=== PATIENT | male | born 1940 | race Caucasian/White ===

== ENCOUNTER 2017-03-05 09:10 | Emergency (ER) | payer MEDICARE ==
[2017-03-05] MEDS ORDERED: Acetaminophen 325 MG TAB ONE (09:34)
[2017-03-05] MEDS ORDERED: Ondansetron HCl/PF 4 MG/2 ML Vial ONE (09:45)
[2017-03-05 09:58] LABS: #Basophils 0.1 thou/uL (0.0-0.2); #Eosinphils 0.1 thou/uL (0.0-0.7); #Lymphocytes 1.9 thou/uL (1.20-3.40); #Monocytes 0.8 thou/uL (0.11-0.59); #Neutrophils 7.8 thou/uL (1.40-6.50); %Basophils 0.6 % (0.0-1.0); %Eosinophils 0.9 % (0.0-10.0); %Lymphocytes 17.7 % (21.0-51.0); %Monocytes 7.4 % (0.0-10.0); %Neutrophils 73.5 % (42.0-75.0); Hemoglobin 15.5 g/dL (14.0-18.0); Mean Corpuscular HGB CONC 31.4 g/dL (32.0-36.0); Mean Corpuscular Hemoglobin 28.9 pg (27.0-31.0); Mean Corpuscular Volume 92.2 fl (80.0-94.0); Mean Platelet Volume 8.2 fL (7.4-10.4); Platelet Count 145 thou/uL (130-400); RBC Distribution Width 12.2 % (11.5-14.5); Red Blood Cell (RBC) Count 5.36 mill/uL (4.70-6.10); White Blood Cell (WBC) Count 10.6 thou/uL (4.8-10.8)
[2017-03-05 10:12] LABS: ALT (SGPT) 13 U/L (8-55); AST (SGOT) 13 U/L (5-34); Albumin 3.7 g/dL (3.4-4.8); Alkaline Phosphatase 52 U/L (40-150); Anion Gap 15 mmol/L (10-20); BUN (Urea Nitrogen) 26 mg/dL (8.4-25.7); Bilirubin, Total 1.3 mg/dL (0.2-1.2); CK (CPK) 19 U/L (30-200); Calc. Creatinine Clearance 0 mL/min (70-130); Calcium 9.4 mg/dL (7.8-10.44); Carbon Dioxide 23 mmol/L (23-31); Chloride 104 mmol/L (98-107); Estimated GFR-MDRD 57; Globulin 2.6 g/dL (2.4-3.5); Glucose 135 mg/dL (83-110); Potassium 4.3 mmol/L (3.5-5.1); Protein, Total 6.3 g/dL (5.8-8.1); Sodium 138 mmol/L (136-145)
[2017-03-05 10:13] LABS: CKMB 0.5 ng/mL (0-6.6); Troponin I Less than 0.010 ng/mL (< 0.028)
--- NOTE | 2017-03-05 10:18 | RAD ---
CHEST TWO VIEWS: History: Cough, fever. Comparison: 03-15-12 FINDINGS: Cardiac silhouette is enlarged. Pulmonary vasculature is engorged. Mediastinum is midline. There is n o confluent airspace consolidation, pneumothorax, or pleural fluid evident. IMPRESSION: Cardiomegaly with mild pulmonary vascular congestion. POS: [facility]
[2017-03-05 11:33] LABS: Bilirubin Small (Negative); Blood, Urine Negative (Negative); Clarity Clear (Clear); Glucose, Urine (Dipstick) Negative (Negative); Leukocyte Negative (Negative); Nitrite Negative (Negative); Protein, Urine (Dipstick) 30 mg/dL (Neg-Trace); Specific Gravity, Urine 1.025 (1.005-1.030); pH, Urine 5.5 (5.0-9.0)
[2017-03-05 11:48] LABS: Bacteria/HPF None Seen HPF (None Seen); Crystals/HPF 1+ CA OXALATE HPF (Negative); RBC/HPF 0-3 HPF (0-3); Squamous Epithelial None Seen HPF (0-3); WBC/HPF 0-3 HPF (0-3)
[2017-03-05 12:18] LABS: Lactic Acid 0.8 mmol/L (0.5-2.2)
--- NOTE | 2017-03-28 15:48 | EKG ---
Test Reason : Blood Pressure : / mmHG Vent. Rate : 068 BPM Atrial Rate : 068 BPM P-R Int : 224 ms QRS Dur : 088 ms QT Int : 394 ms P-R-T Axes : 033 -57 -04 degrees QTc Int : 418 ms Sinus rhythm with 1st degree A-V block Left axis deviation Inferior infarct , age undetermined Abnormal ECG Confirmed by PATRICK VALERIO D.O. ([id number]), video effects editor KAVITA ROSALES ([id number]) on 03/28/2017 3:48:01 PM Referred By: IMAN Confirmed By:PATRICK VALERIO D.O.
== END 2017-03-05 12:36 | disposition home or self-care (01) ==
LOC: SCSER 09:10
DX: B34.9 Viral infection, unspecified (principal); E11.9 Type 2 diabetes mellitus without complications; E78.5 Hyperlipidemia, unspecified; Z85.038 Personal history of other malignant neoplasm of large intestine; Z79.82 Long term (current) use of aspirin; Z79.84 Long term (current) use of oral hypoglycemic drugs; Z79.899 Other long term (current) drug therapy
CPT/HCPCS: 71046; 80053; 81003; 81015; 82550; 82553; 83605; 83880; 84484; 85025; 87040; 93005; J2405

== ENCOUNTER 2017-03-05 16:36 | Observation (INO) | payer MEDICARE ==
[2017-03-05 17:41] LABS: Hemoglobin 13.8 g/dL (14.0-18.0); Mean Corpuscular HGB CONC 32.3 g/dL (32.0-36.0); Mean Corpuscular Hemoglobin 30.9 pg (27.0-31.0); Mean Corpuscular Volume 95.7 fl (80.0-94.0); Mean Platelet Volume 8.3 fL (7.4-10.4); Platelet Count 119 thou/uL (130-400); RBC Distribution Width 12.5 % (11.5-14.5); Red Blood Cell (RBC) Count 4.46 mill/uL (4.70-6.10); White Blood Cell (WBC) Count 10.9 thou/uL (4.8-10.8)
[2017-03-05] MEDS ORDERED: Mag-Al 1200 mg/1200 mg/30 ML UDCUP ONE (17:42)
[2017-03-05] MEDS ORDERED: Lidocaine Viscous Sol 2% 15 ml UD Cup ONE (17:42)
[2017-03-05] MEDS ORDERED: Acetaminophen 325 MG TAB ONE (17:42)
[2017-03-05] MEDS ORDERED: Famotidine/PF 20 mg/2ml Vial ONE (17:42)
[2017-03-05 17:53] LABS: #Eosinphils 0.1 thou/uL (0.0-0.7); #Lymphocytes 1.2 thou/uL (1.20-3.40); #Monocytes 1.1 thou/uL (0.11-0.59); #Neutrophils 8.4 thou/uL (1.40-6.50); %Basophils 0.3 % (0.0-1.0); %Eosinophils 0.8 % (0.0-10.0); %Lymphocytes 11.2 % (21.0-51.0); %Monocytes 10.4 % (0.0-10.0); %Neutrophils 77.4 % (42.0-75.0); PLT Morphology Comment Appears Decreased
[2017-03-05 18:04] LABS: CKMB 0.8 ng/mL (0-6.6)
[2017-03-05] MEDS ORDERED: Aspirin 325 MG TAB ONE (22:18)
[2017-03-05] MEDS ORDERED: Acetaminophen 325 MG TAB PO PRN ×2 (23:16→23:35)
[2017-03-05] MEDS ORDERED: Ondansetron ODT 4 MG TAB SL PRN (23:16)
[2017-03-05] MEDS ORDERED: Ondansetron HCl/PF 4 MG/2 ML Vial IVP PRN ×2 (23:16→23:35)
[2017-03-05] MEDS ORDERED: Morphine 4 MG/ML Carpuject SLOW IVP PRN (23:35)
[2017-03-05] MEDS ORDERED: Dextrose 5% in Water 1,000 ML IV PRN (23:35)
[2017-03-05] MEDS ORDERED: Zolpidem Tartrate 5 MG TAB PO PRN (23:35)
[2017-03-05] MEDS ORDERED: Benzonatate 100 MG CAP PO PRN (23:35)
[2017-03-05] MEDS ORDERED: Nitroglycerin 0.4 MG TAB (25 Tab Bottle) PO PRN (23:35)
[2017-03-05] MEDS ORDERED: Chloraseptic Spray 180 ml Bottle PO PRN (23:35)
[2017-03-05] MEDS ORDERED: HYDROcodone/Acetaminophen 5/325 mg Tablet PO PRN (23:35)
[2017-03-05] MEDS ORDERED: Dextrose 50% Abboject 50 ML SYRINGE SLOW IVP PRN (23:35)
[2017-03-05] MEDS ORDERED: hydrALAZINE 20 MG/ML VIAL SLOW IVP PRN (23:35)
[2017-03-05] MEDS ORDERED: HumaLOG 300 UNITS/3 ML VIAL SC PRN (23:35)
[2017-03-05] MEDS ORDERED: Oseltamivir 75 MG CAP PO SCH (23:45)
[2017-03-05 23:49] VITALS: BMI 35.2
[2017-03-05] MEDS ORDERED: predniSONE 20 MG TAB PO SCH (23:59)
[2017-03-06] MEDS: Sodium Chloride 0.9% 1,000 ML IV SCH ×2 (00:21→15:57)
[2017-03-06 00:24] LABS: Troponin I 0.063 ng/mL (< 0.028)
[2017-03-06 01:23] LABS: Bilirubin Small (Negative); Blood, Urine Negative (Negative); Clarity CLEAR (Clear); Glucose, Urine (Dipstick) 500 mg/dL (Negative); Leukocyte Negative (Negative); Nitrite Negative (Negative); Protein, Urine (Dipstick) Trace mg/dL (Neg-Trace); Specific Gravity, Urine 1.034 (1.002-1.036); pH, Urine 5.5 (5.0-9.0)
[2017-03-06 01:25] LABS: Bacteria/HPF None Seen HPF (None Seen); Hyaline Casts/LPF 0-3 HYALINE CAST LPF (0-3 Hyaline); Pathc Cast-AUWi Flag 0.13 (0-2.49); RBC/HPF 0-3 HPF (0-3); Squamous Epithelial 0-3 HPF (0-3); WBC/HPF 0-3 HPF (0-3)
[2017-03-06 01:51] LABS: Renal Epithelial 0-3 HPF (0-3); Transitional Epithelial NONE SEEN HPF (0-3)
[2017-03-06 01:52] LABS: Crystals/HPF 2+ CA OXALATE HPF (Negative)
[2017-03-06 05:55] LABS: #Eosinphils 0.1 thou/uL (0.0-0.7); #Lymphocytes 1.4 thou/uL (1.20-3.40); #Neutrophils 5.5 thou/uL (1.40-6.50); %Basophils 0.3 % (0.0-1.0); %Eosinophils 1.5 % (0.0-10.0); %Lymphocytes 17.4 % (21.0-51.0); %Monocytes 12.6 % (0.0-10.0); %Neutrophils 68.2 % (42.0-75.0); Hemoglobin 12.3 g/dL (14.0-18.0); Mean Corpuscular HGB CONC 31.8 g/dL (32.0-36.0); Mean Corpuscular Hemoglobin 30.9 pg (27.0-31.0); Mean Corpuscular Volume 97.2 fl (80.0-94.0); Mean Platelet Volume 8.6 fL (7.4-10.4); Platelet Count 102 thou/uL (130-400); RBC Distribution Width 12.7 % (11.5-14.5); Red Blood Cell (RBC) Count 3.98 mill/uL (4.70-6.10); White Blood Cell (WBC) Count 8.1 thou/uL (4.8-10.8)
[2017-03-06 06:12] LABS: Anion Gap 12 mmol/L (10-20); BUN (Urea Nitrogen) 28 mg/dL (8.4-25.7); Calc. Creatinine Clearance 77 mL/min (70-130); Calcium 8.6 mg/dL (7.8-10.44); Carbon Dioxide 25 mmol/L (23-31); Cardiac Risk 3.1 (Less than 4.5); Chloride 105 mmol/L (98-107); Cholesterol 137 mg/dl (< 200 Desired); Estimated GFR-MDRD 57; Glucose 105 mg/dL (83-110); HDL Cholesterol 44 mg/dL (>60 Neg Risk); LDL Cholesterol, Calculated 81 mg/dL; Potassium 4.1 mmol/L (3.5-5.1); Sodium 138 mmol/L (136-145); Triglycerides 58 mg/dL (Less than 150)
--- NOTE | 2017-03-06 06:18 | HP ---
CHIEF COMPLAINT: Chills and cough. HISTORY OF PRESENT ILLNESS: This is a 77-year-old pleasant gentleman who was apparently in usual sta te of health, was feeling fluish yesterday and went to the local emergency room where he was diagnose d with influenza and was sent home with azithromycin and Tamiflu. The patient felt a little better evening, but today in the morning was awakened by chills. He rested for some time and took his medications and the chills subsided in bed, but when it came back again this afternoon, he was co ncerned and he came to the hospital for further evaluation and treatment. The patient said that the chills were accompanied with severe abdominal pain and some nausea, abdominal pain like muscle spasm, which he has never experienced. The abdominal pain was relieved with some IV pain medications out h ere. The patient is going to be admitted for further evaluation and treatment of the chills and poss ible abdominal pain. Patient admits to some nausea on and off and is feeling okay right now, had one episode of loose stools on Thursday. No dysuria, some mild cough with no sputum production. PAST MEDICAL HISTORY: Significant for hyperlipidemia, diabetes, colon cancer, and myasthenia gravis, on chronic steroid therapy and pyridostigmine. PAST SURGICAL HISTORY: Colon surgery in 2010, cataract surgery, gastric sleeve surgery in 2008. SOCIAL HISTORY: Does not smoke, drink or do any recreational drugs. MEDICATIONS: Include Zithromax, Tamiflu, prednisone, aspirin, Cialis, pyridostigmine. FAMILY HISTORY: Negative for diabetes and hypertension. ALLERGIES: No known drug allergies. REVIEW OF SYSTEMS: Significant for chills, low grade fever, cough, and abdominal pain epigastric. T he patient otherwise has no headache, no appetite, no hearing loss, no latencies. Some chest pain. No diarrhea, dysuria, or polyuria. No memory or mood changes. No neck pain. PHYSICAL EXAMINATION: VITAL SIGNS: The patient's blood pressure is 112/60, respirations 20, temperature afebrile, pulse is 74. GENERAL: Patient is lying in bed, in no apparent distress right now after he got the pain medication s. HEENT: Atraumatic, normocephalic. Pupils equally round, reactive to light. Extraocular movements i ntact. Mucous membranes moist. NECK: Supple. No JVD. CHEST: Breath sounds heard. No rales or rhonchi. HEART: S1, S2, no murmurs or gallops. ABDOMEN: Soft, obese. No rebound, no guarding, no tenderness. Bowel sounds present. EXTREMITIES: No cyanosis, clubbing, edema. Distal pulses present. NEUROLOGIC: Alert, awake, oriented. No cranial nerve deficits. No sensorimotor deficits. LABORATORY DATA: Troponin is 0.04, lipase is 7. EKG shows normal sinus rhythm with some incomplete right bundle branch block, some septal infarct, age indeterminate, possibly a change from patient's m orning EKG. The patient's chest x-ray shows pulmonary congestion. Potassium is 4.3, creatinine is 1 .2. Lactic acid is 0.8. AST is 13, ALT is 13. BNP is 84, albumin is 3.7. ASSESSMENT AND PLAN: 1. Systemic inflammatory response syndrome, possibly secondary to influenza and upper respiratory tr act infection. We will continue Tamiflu, DuoNebs, some supportive treatment for cough and Levaquin a nd do blood cultures for now. 2. Abdominal pain looks like a muscle spasm. We will monitor the patient and give some pain medicat ions. 3. Chest pain with some abnormal findings on the EKG. We will consult Dr. Gabriele Forrest and trend troponins and do echocardiogram. 4. Influenza. We will continue Tamiflu. Recheck flu screen. 5. Hyperlipidemia, stable. 6. Diabetes, controlled by diet. We will put him on insulin sliding scale. 7. History of colon cancer, status post surgery. 8. History of myasthenia gravis. 9. History of chronic steroid use. We will give him IV Pepcid for now and Nexium at the time of dis charge. 10. Sequential compression devices for deep venous thrombosis prophylaxis. I will follow the labs a nd do the need for.
[2017-03-06] MEDS ORDERED: predniSONE 20 MG TAB PO SCH (08:00)
[2017-03-06] MEDS ORDERED: Famotidine/PF 20 mg/2ml Vial SLOW IVP SCH (09:00)
[2017-03-06] MEDS ORDERED: Aspirin 325 MG TAB PO SCH (09:00)
[2017-03-06] MEDS ORDERED: Docusate 100 MG CAP PO SCH (09:00)
[2017-03-06] MEDS ORDERED: Oseltamivir 75 MG CAP PO SCH (09:00)
[2017-03-06 11:32] VITALS: BP 132/61; TEMP 97.7
[2017-03-06 12:24] LABS: CKMB 0.7 ng/mL (0-6.6)
[2017-03-06] MEDS: Pyridostigmine Bromide IR 60 MG TAB PO SCH ×2 (15:26→15:34)
--- NOTE | 2017-03-06 20:37 | CON ---
DATE OF SERVICE: 03/06/2017. REASON FOR CONSULTATION: Indeterminate troponins. HISTORY OF PRESENT ILLNESS: Mr. Rai is a very pleasant 77-year-old white gentleman who comes to the hospital for abdominal discomfort. He was complaining of fever, chills, cough, and flu-like symp toms. He went to see an urgent care locally and even though he had a negative flu nasal swab, he was started on Tamiflu as he had all the symptoms for the flu. He started to develop nausea and abdomin al pain. He describes it as a lower abdominal pain, so he decided to come in for evaluation. Cardio logy is being consulted as there is a concern that this abdominal pain could be related to chest pain as well. His troponins are also in the indeterminate range. Mr. Rai denies any chest pain, tightness, pressure. No shortness of breath except for his flu-li ke symptoms. PAST MEDICAL HISTORY: 1. Hyperlipidemia. 2. Type 2 diabetes. 3. History of colon cancer. 4. Myasthenia gravis. 5. Chronic steroid therapy with pyridostigmine. PAST SURGICAL HISTORY: 1. Colon resection in 2010. 2. Cataract surgery. 3. Gastric sleeve in 2008. SOCIAL HISTORY: No alcohol, tobacco, or drugs. 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 OUTPATIENT MEDICATIONS: 1. Tamiflu. 2. Zithromax. 3. Prednisone. 4. Aspirin. 5. Cialis. 6. Pyridostigmine. FAMILY HISTORY: Noncontributory. ALLERGIES: No known drug allergies. REVIEW OF SYSTEMS: Twelve-point review of systems was done and is all negative unless stated in hist ory of present illness. PHYSICAL EXAMINATION: VITAL SIGNS: Temperature 97.7, pulse 85, respiratory rate 20, satting 94% on 2 liters, blood pressur e 132/61. GENERAL: Awake, alert, oriented x3, in no distress. HEENT: Normocephalic, atraumatic. NECK: Supple. LUNGS: Clear. CARDIOVASCULAR: S1, S2. No S3, S4. No murmurs, no rubs. ABDOMEN: Soft. Positive bowel sounds. EXTREMITIES: No edema. SKIN: Warm and dry. LABORATORY DATA: Laboratory work was reviewed. CBC was reviewed. Chemistries were reviewed. Tropo nins were 0.06, 0.06, 0.03. Normal CK-MB. BUN was 29, creatinine 1.23. Triglycerides of 58, choles terol total of 137, LDL of 81, HDL of 44. Lipase was 7. Echocardiogram was reviewed, normal LV function with grade I diastolic dysfunction. Chest x-ray was reviewed. ASSESSMENT AND PLAN: Indeterminate troponins: Most likely related to his flu-like symptoms. He den ies any chest pain, tightness, or pressure. At this time, from the cardiac perspective, no further w orkup will be done until he is over the flu-like symptoms. Echocardiogram showing normal LV function suggested that this is not an acute coronary syndrome plus his symptoms were not consistent with thi s. Thank you for letting us to participate in the care of your patient. We will sign off. Please call with any questions. Plan to follow up with him in 1 month. Card was given to him and he will call my office on Thursday to schedule his appointment.
--- NOTE | 2017-03-06 23:12 | DIS ---
DATE OF ADMISSION: 03/05/2017 DATE OF DISCHARGE: 03/06/2017 DISCHARGE DIAGNOSES: 1. Non-influenza viral illness. 2. Systemic inflammatory response syndrome of infectious origin without acute organ dysfunction. 3. Chest pain. 4. Chronic long-term use of steroids. 5. Myasthenia gravis without acute exacerbation. 6. Abnormal troponin likely due to demand. 7. Hyperlipidemia. 8. Diabetes mellitus type 2. 9. History of colon cancer, status post partial colon resection. CONSULTATION: Cardiology, Dr. Julian Kirkland. PROCEDURES: Echocardiogram that was normal, normal ejection fraction, no mention of systolic or diastolic dysfunction or major valvular abnormalities, grade I diastolic dysfunction. HISTORY AND PHYSICAL: Mr. Rai is a 77-year-old gentleman with a recent viral illness who presented to an outside urgent care facility for evaluation. A couple of days prior to admission, a flu test at that time was negative, but certainly make clinical syndrome and was placed on Tamiflu. He developed an epigastric pain and shaking chills that lasted about 2 hours and decided to come to the Emergency Department for evaluation. Here, he had a repeat flu screen that was again negative. White blood cell count was normal at 10.9 and a normal differential. Chemistry profile was normal and a troponin was indeterminate at 0.040. We were called for admission. HOSPITAL COURSE: The patient was seen and examined by Dr. Ortiz. He was placed in observation overnight. Serial cardiac biomarkers were obtained, which showed the troponin go from 0.040-0.060-0.063 before being repeated this morning at 0.03. I had no further episodes of chest pain. Telemetry monitoring was unremarkable. Cardiology was consulted on admission for their recommendations. Overnight, he did well with no further episodes. A fasting lipid profile today was normal. Repeat chemistries were completely normal and CBC was completely normal. Dr. Kirkland from [facility] saw the patient and felt there was no acute process. He had some diastolic dysfunction and went to see the patient and followed him in about 4 weeks, but otherwise cleared the patient for discharge. The patient was discharged home in good condition. The patient did have a negative flu screen prior to admission, a second negative screen in the Emergency Department at admission, and a negative chest x-ray. I spoke at length. Upper respiratory viral nucleic acid testing was ordered and is currently pending. PHYSICAL EXAMINATION: The patient was seen and examined on the day of discharge. Discharge plan and disposition was discussed with the patient and his [id number] at the bedside. DISCHARGE MEDICATIONS: 1. Tylenol 650 mg p.o. q.4 hours p.r.n. 2. Aspirin 81 mg daily. 3. Benzonatate 100 mg p.o. q.4 hours p.r.n. 4. He is to finish out his course of azithromycin if he chooses to. I did speak with him at length about a negative chest x-ray and likely not bacterial infection and likely that azithromycin is completely ineffective. He said he probably will not take it. 5. Fish oil/flaxseed oil/omega 369 one p.o. daily. 6. Omeprazole 20 mg daily. 7. Tamiflu 75 mg p.o. b.i.d. until the night of 03/07. 8. Prednisone 10 mg p.o. every other day. 9. Mestinon 60 mg p.o. t.i.d. 10. Tadalafil 20 mg p.o. p.r.n. erectile dysfunction. FOLLOWUP APPOINTMENTS: 1. Dr. Kishor Gonzalez within a week. 2. Dr. Julian Kirkland in 4 weeks. DISCHARGE DIET: Heart healthy, diabetic recommended. DISCHARGE ACTIVITY: Per cardiopulmonary limits. DISCHARGE CONDITION: Good. DISPOSITION: Being discharged to home via private vehicle. SALLY
--- NOTE | 2017-03-21 13:16 | EKG ---
Test Reason : Blood Pressure : / mmHG Vent. Rate : 072 BPM Atrial Rate : 072 BPM P-R Int : 200 ms QRS Dur : 094 ms QT Int : 396 ms P-R-T Axes : 018 -61 -03 degrees QTc Int : 433 ms Normal sinus rhythm Left axis deviation Incomplete right bundle branch block Septal infarct , age undetermined -- new change from this? Inferior infarct , age undetermined Abnormal ECG Confirmed by GUADALUPE LEVIN, BHARAT ([id number]), video effects editor [employer]OLFE ([id number]) on 03/21/2017 1:15:49 PM Referred By: Confirmed By:BHARAT BUTCHER MD
== END 2017-03-06 17:20 | disposition home or self-care (01) ==
LOC: ERS 16:36 → 2SW 20:49
PROVIDERS: ADMIT Internal Medicine; ATTEND Internal Medicine
DX: B34.9 Viral infection, unspecified (principal); R65.10 Systemic inflammatory response syndrome (SIRS) of non-infectious origin without acute organ dysfunction; R07.9 Chest pain, unspecified; G70.00 Myasthenia gravis without (acute) exacerbation; R79.89 Other specified abnormal findings of blood chemistry; E78.5 Hyperlipidemia, unspecified; E11.9 Type 2 diabetes mellitus without complications; Z79.52 Long term (current) use of systemic steroids; Z79.2 Long term (current) use of antibiotics; Z79.82 Long term (current) use of aspirin; Z79.899 Other long term (current) drug therapy; Z98.84 Bariatric surgery status; Z98.49 Cataract extraction status, unspecified eye; Z90.49 Acquired absence of other specified parts of digestive tract; Z98.890 Other specified postprocedural states; Z85.038 Personal history of other malignant neoplasm of large intestine
CPT/HCPCS: 71046; 80048; 80053; 80061; 81001; 82550; 82553 ×3; 82962; 83605; 83690; 83880; 84484 ×3; 85025 ×3; 87040 ×2; 87633; 87804 ×2; 93005; 93306; 94760 ×2; 96361 ×2; 96365; 96366; 96374; 96375 ×2; 99284; 99285; G0378; 36415; 36416; 81003; 81015; J1956; J2405; J7506; S0028